=== PATIENT | female | born 1990 | race Caucasian/White ===

== ENCOUNTER 2017-02-11 01:39 | Emergency (ER) | payer OTHER ==
[~2017-02-11] VITALS: Ht 167.6 cm; Wt 113.4 kg
[~2017-02-11 01:39] MED LIST: BUSPAR 5 MG TABL5 M1 PO; CITRATE OF MAG296 ML PO; IBUPROFEN 600600 M1 PO; ULTRAM 50MG TAB50 MG PO; WELLBUTRIN
[2017-02-11 01:42] VITALS: BP 117/78
== END 2017-02-11 02:08 | disposition home or self-care (01) ==
LOC: ER 01:39
DX: J04.0 Acute laryngitis (principal); F17.210 Nicotine dependence, cigarettes, uncomplicated; F10.99 Alcohol use, unspecified with unspecified alcohol-induced disorder; Z88.5 Allergy status to narcotic agent